=== PATIENT | female | born 1995 | race Caucasian/White ===

== ENCOUNTER 2020-08-05 20:33 | Emergency (ER) | payer OTHER ==
[~2020-08-05] VITALS: Ht 170.2 cm; Wt 86.2 kg
[2020-08-05 20:40] VITALS: BP 134/81
--- NOTE | 2020-08-05 20:45 | NUR ---
PT AMBUALTED TO BED 6 WITH STEADY GAIT. VISION TEST PERFORMED. BOTH: 20/30, R: 20/13, L: 20/20.
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
[2020-08-05] MEDS ORDERED: HYDROcodone/APAP 5/325 MG 1 TAB TAB PO ONE (21:00)
--- NOTE | 2020-08-05 21:10 | NUR ---
RETURNED FROM CT
[2020-08-05 21:42] VITALS: BP 134/81
--- NOTE | 2020-08-05 21:42 | NUR ---
Patient discharged with v/s stable. Written and verbal after care instructions given and explained. Patient verbalized understanding. Ambulatory with steady gait. All questions addressed prior to discharge. Advised to follow up with PMD.
== END 2020-08-05 21:42 | disposition home or self-care (01) ==
LOC: MED 20:33
DX: S16.1XXA Strain of muscle, fascia and tendon at neck level, initial encounter (principal); S09.90XA Unspecified injury of head, initial encounter; V89.2XXA Person injured in unspecified motor-vehicle accident, traffic, initial encounter; Y93.89 Activity, other specified; Y92.89 Other specified places as the place of occurrence of the external cause; Y99.8 Other external cause status
CPT/HCPCS: 70450; 72125; 99285

== ENCOUNTER 2021-09-26 12:29 | Emergency (ER) | payer OTHER ==
[~2021-09-26] VITALS: Ht 167.6 cm; Wt 85.3 kg
[2021-09-26 13:46] VITALS: BP 120/73
[2021-09-26 16:36] VITALS: BP 120/73
--- NOTE | 2021-09-26 16:41 | NUR ---
pt requested for knee mobilizer to be tightened.
== END 2021-09-26 16:37 | disposition home or self-care (01) ==
LOC: MED 12:29
DX: M25.562 Pain in left knee (principal); W19.XXXA Unspecified fall, initial encounter; Y93.89 Activity, other specified; Y92.89 Other specified places as the place of occurrence of the external cause; Y99.8 Other external cause status
CPT/HCPCS: 29505; 73562; 99283